=== PATIENT | female | born 1975 | race Caucasian/White ===

== ENCOUNTER 2020-08-05 15:30 | Outpatient (RCR) | payer OTHER, SELFPAY ==
--- NOTE | 2020-07-06 12:35 | PTOPEVAL ---
PHYSICAL THERAPY EVALUATION AND PLAN OF CARE 07-06-2020 Thank you for referring Honey Ziegler to [facility].? She is scheduled to be seen for therapy? 2-3 x/week for 6 weeks. Please review, sign, date and return this plan of care ELENITA. I agree with and certify that the following plan of care is medically necessary. Referring Physician Date Attending Provider: Dr. Levar Phelps *PT Outpatient Evaluation Start: 07/06/20 09:35 Document 07/06/20 09:41 DELVIN (Rec: 07/06/20 11:02 DELVIN [id number]) Therapy Assessment Status Assessment Status Assessment Status Evaluation Outpatient Past Medical History Past Medical History Source of Past Medical History Patient Neurological History Hx Migraine Yes: 2-3 x/month, last 1-2 days Cardiovascular History Hx Cardiac Disorders No Significant History Respiratory History Hx Other Respiratory Disorders Yes: seasonal allergies Gastrointestinal History Hx Gastric Bypass Surgery Yes: 3 years ago-lost 80# and regained 20# recently Hx Gastroesophageal Reflux Disease Yes Genitourinary History Hx Genitourinary Disorders No Significant History Musculoskeletal History Hx Musculoskeletal Disorders No Significant History Endocrine History Hx Hypothyroidism Yes: on meds Reproductive History Hx Section Yes: 13 yr ago Other History Hx Cancer Yes: L breast mastectomy with B reduction 2011-radiation& chemo Hx Radiation Therapy Yes Hx Other Surgeries Yes: MRI guided biopsy on R breast last week Evaluation Information Problem Diagnosis lymphedema- lipedema Onset about 1 yr ago in arms Prior Level of Function Activity Level (Last 3 Months) Occupation teacher- remote teaching Hand Dominance Right Activity of Daily Living Ability Independent Indoor/Home Mobility Independent Community Mobility Independent Stairs Ability Independent Functional Cognition (Planning, Shopping Independent , Taking Medications) Cooking Yes Cleaning Yes Laundry Yes Shopping Yes Driving Yes Comments Additional Prior Level of Function sometimes have more problems Comments with lifting with weakness of L arm; home with 13 yr old son Pain Assessment Timing of Pain Assessment Timing of Pain Assessment Assessment Pain Scale Pain Scale Used Numeric (1 - 10) Self Report Pain Assessmen
--- NOTE | 2020-07-15 15:15 | PCPTNOTE ---
pt called and cancelled under [employer] until her son's covid test come back.
--- NOTE | 2020-07-21 09:57 | PCPTNOTE ---
pt's info faxed to [facility], for insurance authorization for UE reduction kit and LE custom fit panty/LE compression garment; pt had signed consent earlier for her info to be released
--- NOTE | 2020-08-10 13:04 | PCPTNOTE ---
Pt was seen in the ER this weekend due to chest pains. Pt received a CT which the pt was told , she needs to contact her oncologist due to some spots on the report that may be new places of cancer. Pt's appt was cancelled until pt gets the cleared from her oncologist .
--- NOTE | 2020-08-14 15:59 | PCPTNOTE ---
pt called and canceled today's reevaluation, due to awaiting oncology consult for possible new lesion/recent testing;
--- NOTE | 2020-09-25 11:16 | PCPTNOTE ---
PHYSICAL THERAPY DISCHARGE 09-25-2020 Patient:Honey Ziegler Date of :1975 Referring physician: Dr. Levar Phelps Ms. Ziegler has received 9 PT sessions, from July 06 to August 05, for the diagnosis of B UE and LE lipo-lymphedema. Miguel then canceled her appointments due to awaiting further testing/ biopsy and results for a spot on her trunk. Thank you for referring this Miguel to [facility]. Please review, sign, date and return this discharge summary ELENITA. I have been updated about the patient's current status and I agree with discharge from the above service at this time. Referring Physician Date
== END 2020-09-25 14:28 | disposition home or self-care (01) ==
LOC: ANHPT 15:30
PROVIDERS: PCP Internal Medicine
DX: I89.0 Lymphedema, not elsewhere classified (principal); M79.604 Pain in right leg; M79.605 Pain in left leg
CPT/HCPCS: 97110; 97140; 97162

== ENCOUNTER 2020-08-08 04:33 | Emergency (ER) | payer OTHER, SELFPAY ==
[2020-08-08] VITALS (13 sets, daily range): BP systolic 105–155; BP diastolic 71–90; PULSE 70–91; RESP 18; TEMP 36.8; O2SAT 96–100
--- NOTE | ~2020-08-08 | CT_ITS ---
EXAMINATION: CT abdomen pelvis w con DATE: 08/08/2020 07:34 INDICATION: Epigastric abdominal pain. Left upper quadrant abdominal pain. Hiatal hernia. TECHNIQUE: Computed tomography (CT) of the abdomen and pelvis was performed with 100 mL Omnipaque 350 intravenous contrast. Automated exposure control and iterative reconstruction technique were employe d. The dose-length product was 1642.82 mGy-cm. COMPARISON: None. FINDINGS: The visualized portions of the lung bases demonstrate mild atelectasis on the right. There is elevation of right hemidiaphragm. No pleural effusion. The heart size is normal. No pericardial ef fusion. Partially visualized is a left breast implant. The liver and spleen are normal. The gallbladd er is normal in size. Gallbladder wall thickening is noted. There are surgical changes of gastric sle zack procedure. There is a small sliding hiatal hernia. The pancreas, adrenal glands, and left kidney are normal. There is a 1.7 cm mass in right kidney. There is an intrauterine device in expected posit ion. There are no dilated loops of bowel. The appendix is normal. There are no pathologically enlarge d lymph nodes. There is no free intraperitoneal fluid. There is a lytic lesion of right fifth rib. Th ere is a benign bone island in left parasymphyseal pubis. There is a benign bone island in T9 vertebr al body. IMPRESSION: 1. Gallbladder wall thickening, which may be seen with interstitial edema, chronic liver disease, or chronic cholecystitis. 2. Small sliding hiatal hernia. 3. Lytic lesion of right fifth rib, consistent with metastatic disease. 4. 1.7 cm right kidney mass, which may be a hemorrhagic cyst or less likely a solid neoplasm. Abdomen CT or MRI without and with contrast is recommended. Reviewed, dictated and finalized at location A. IMPRESSION: 1. Gallbladder wall thickening, which may be seen with interstitial edema, senior procurement manager juan liver disease, or chronic cholecystitis. 2. Small sliding hiatal hernia. 3. Lytic lesion of right fifth rib, consistent with metastatic disease. 4. 1.7 cm right kidney mass, which may be a hemorrhagic cyst or less likely a s olid neoplasm. Abdomen CT or MRI without and with contrast is recommended.
--- NOTE | 2020-08-08 04:31 | ED.ABDPAIN ---
HPI - Abdominal Pain General Chief Complaint: Abdominal Pain <Dorothy Guerrero MD - Last Filed: 08/08/20 07:15> Stated Complaint: epigastric pain <Dorothy Guerrero MD - Last Filed: 08/08/20 07:15> Time Seen by Provider: 08/08/20 07:10 <Dorothy Guerrero MD - Last Filed: 08/08/20 07:15> Source: patient and EMS <Dorothy Guerrero MD - Last Filed: 08/08/20 07:15> Mode of arrival: EMS <Dorothy Guerrero MD - Last Filed: 08/08/20 07:15> Limitations: no limitations <Dorothy Guerrero MD - Last Filed: 08/08/20 07:15> History of Present Illness HPI narrative: Patient is a 45-year-old female who presents for evaluation of upper abdominal pain. Patient reports that she ate a cheeseburger at [employer] earlier this evening, started to have some sharp, colicky epigastric pain radiating into her chest. Patient denied any palpitations, no diaphoresis. Patient with nausea without vomiting. Patient states this feels different than her typical acid reflux. She denies any current shortness of breath. Patient denies any flank pain or radiation of pain to the shoulders or back. No lightheadedness or dizziness. Patient states pain is worsened over the past 4 hours, thus she is seeking care in the emergency department. She denies any dysuria, hematuria or frequency. No diarrhea or constipation. Patient denies distention, she denies any alcohol use or drug use. <Dorothy Guerrero MD - Last Filed: 08/08/20 07:15> Related Data Home Medications: Home Medications Medication Instructions Recorded Confirmed cetirizine [Zyrtec] 10 mg PO DAILY 08/08/20 fluticasone propionate [Flonase] 1 spray INTRANASAL DAILY PRN 08/08/20 levothyroxine 75 mcg PO DAILY 08/08/20 lorazepam 0.5 mg PO DAILY PRN 08/08/20 omeprazole 40 mg PO DAILY 08/08/20 venlafaxine [Effexor XR] 150 mg PO DAILY 08/08/20 <Dorothy Guerrero MD - Last Filed: 08/08/20 07:15> Allergies/Adverse Reactions: Allergies Allergy/AdvReac Type Severity Reaction Status Date / Time cephalexin Allergy Mild Rash Verified 08/08/20 04:37 Penicillins Allergy Mild Rash Verified 08/08/20 04:37 <Dorothy Guerrero MD - Last Filed: 08/08/20 07:15> Review of Systems Review of Systems: Narrative: CONSTITUTIONAL: Denies fever ENT: Denies rhinorrhea, congestion CARDIOVASCULAR: Reports lower chest pain, denies palpitations, or edema. RESPIRATORY: Denies cough or dyspnea. GASTROINTESTINAL: Reports epigastric abdominal pain and nausea GENITOURINARY: Denies dysuria or hematuria. SKIN: Denies rash or itching. MUSCULOSKELETAL: Denies back pain, joint pain, or myalgia. NEUROLOGIC: Denies headache, numbness, or weakness. <Dorothy Guerrero MD - Last Filed: 08/08/20 07:15> [facility] Past Medical History Medical History: Medical History Breast cancer Depression Sarcoma <Dorothy Guerrero MD - Last Filed: 08/08/20 07:15> Surgical History Surgical History: Surgical History (Updated 08/08/20 @ 04:43 by Dorothy Guerrero MD) H/O section H/O mastectomy <Dorothy Guerrero MD - Last Filed: 08/08/20 07:15> Social History Social History: Social History (Updated 08/08/20 @ 04:44 by Dorothy Guerrero MD) Smoking status: Never smoker Alcohol intake: never Substance use: never Gender identity (if verbalized by the patient): Female <Dorothy Guerrero MD - Last Filed: 08/08/20 07:15> Exam Narrative: Exam Narrative: GENERAL: Awake, alert, conversant HEAD: Normocephalic, atraumatic. EYES: PERRLA and EOMI. ENT: Nares clear, no rhinorrhea or epistaxis. Mucous membranes moist. NECK: Supple. CHEST: No respiratory distress, breathing even and non labored HEART: Regular rate, sinus rhythm ABDOMEN: Obese non distended, epigastric tenderness, left upper quadrant tenderness, no rebound, no guarding EXTREMITIES: Normal range of motion. No edema. SKIN: Warm, dry, no rash.
--- NOTE | 2020-08-08 04:39 | ECG_ITS ---
Measurements Intervals Jenkins Rate: 83 P: 1 KS: 170 QRS: 40 QRSD: 105 T: 29 QT: 369 QTc: 436 Interpretive Statements SINUS RHYTHM BASELINE WANDER- I, II, AVR NORMAL ECG Electronically Signed On 08-08-2020 7:36:47 CDT by Dharmesh Bal D.O.
[2020-08-08] MEDS: SODIUM CHLORIDE 0.9% IV 1,000 ML 999 ML IV CONT (05:08)
[2020-08-08] MEDS: ONDANSETRON INJ 4 MG/2 ML VIAL IV PUSH (05:08)
[2020-08-08] MEDS: FAMOTIDINE 20 MG/2 ML VIAL IV PUSH (05:08)
[2020-08-08] MEDS: MORPHINE SULFATE (*CRX) 4 MG/ML INJ IV PUSH (05:08)
[2020-08-08] MEDS: MAG HYDROX/AL HYDROX/SIMETH 30 ML UDC PO (05:08)
[2020-08-08 05:18] LABS: Basophils Absolute Auto 0.1 K/mm3 (0.0-0.1); Basophils Percent Auto 0.8 % (0.2-1.2); Eosinophils Absolute Auto 0.1 K/mm3 (0-0.3); Eosinophils Percent Auto 1.4 % (0-4.4); Hematocrit 41.7 % (37.0-47.0); Hemoglobin 13.7 g/dL (12.0-15.0); Immature Granulocyte Absolute 0.02 K/mm3 (0.00-0.031); Immature Granulocyte Percent A 0.3 % (0-0.5); Lymphocytes Absolute Auto 1.73 K/mm3 (0.9-3.2); Lymphocytes Percent Auto 22.2 % (18.3-44.2); Mean Corpuscular HGB Conc 32.9 g/dl (32-36); Mean Corpuscular Hemoglobin 30.2 pg (26-34); Mean Corpuscular Volume 91.9 fl (80-100); Monocytes Absolute Auto 0.5 K/mm3 (0.1-0.6); Monocytes Percent Auto 6.5 % (2.6-8.5); Neutrophils Absolute Auto 5.4 K/mm3 (1.3-6.7); Neutrophils Percent Auto 68.8 % (45.5-73.1); Platelet Count Result 242 k/mm3 (150-375); Red Blood Count 4.54 M/mm3 (4.2-5.4); Red Cell Distribution Width 12.7 % (11.5-14.5); White Blood Count 7.8 K/mm3 (4.5-10.0)
[2020-08-08 05:28] LABS: Prothrombin Time 12.4 Seconds (11.1-14.7)
[2020-08-08 05:29] LABS: Partial Thromboplastin Time 26.6 SECONDS (22.3-36.8)
--- NOTE | 2020-08-08 06:13 | PC.NURSE ---
ED center medical and lab director and turfgrass technician attempted to redraw patient for un-received lab, unsuccessful x2. Phlebotomy called. They stated they will come to draw patient.
[2020-08-08 07:01] LABS: Alanine Aminotransferase 133 U/L (4-35); Albumin Level 3.7 g/dL (3.5-5.1); Alkaline Phosphatase 122 U/L (38-126); Anion Gap 4 mmol/L (8-16); Aspartate Amino Transferase 278 U/L (14-36); Bilirubin,Total 0.6 mg/dL (0.2-1.3); Blood Urea Nitrogen 11 mg/dL (7-17); Calcium 9.3 mg/dL (8.4-10.2); Carbon Dioxide 32 mmol/L (22-30); Chloride 103 mmol/L (98-107); Estimated CRCL calculation 109 ml/min; Estimated Glomerular Filt Rate > 60; Glucose 140 mg/dL (65-105); Lipase 69 U/L (23-300); Potassium 3.8 mmol/L (3.4-5.0); Sodium 139 mmol/L (137-145)
[2020-08-08 07:13] LABS: Troponin I < 0.012 ng/mL (0.000-0.034)
--- NOTE | 2020-08-08 07:13 | PC.NURSE ---
received report from Cat RN. patient resting. father in room. waiting for BMP results to proceed with CT. patient denies at this time.
--- NOTE | 2020-08-08 07:46 | PC.NURSE ---
CT resulted. waiting for further orders from provider vs disposition.
== END 2020-08-08 08:50 | disposition home or self-care (01) ==
PROVIDERS: Emergency Medicine; Emergency Provider General Practice; PCP Internal Medicine
DX: R10.13 Epigastric pain (principal); R74.01 Elevation of levels of liver transaminase levels; Z85.3 Personal history of malignant neoplasm of breast; F32.9 Major depressive disorder, single episode, unspecified; Z90.10 Acquired absence of unspecified breast and nipple; K44.9 Diaphragmatic hernia without obstruction or gangrene; N28.89 Other specified disorders of kidney and ureter; M89.9 Disorder of bone, unspecified
CPT/HCPCS: 36415; 74177; 80053; 83690; 84484; 85025; 85610; 85730; 93005; 96361; 96374; 96375; 99284; A9270; J2270; J2405; J7030; Q9967

== ENCOUNTER 2020-09-27 23:18 | Emergency (ER) | payer OTHER, SELFPAY ==
[2020-09-27 23:21] VITALS: BP 149/75; PULSE 66; RESP 20; TEMP 36.1; O2SAT 100
[2020-09-27 23:36] VITALS: BP 125/74; PULSE 66; RESP 18; O2SAT 99
--- NOTE | 2020-09-27 23:36 | ED.ABDPAIN ---
HPI - Abdominal Pain General Chief Complaint: Abdominal Pain Stated Complaint: abdominal pain Time Seen by Provider: 09/27/20 23:31 History of Present Illness HPI narrative: RUQ pain since 1999 today. Severe. No radiation. Started after eating. Associated with nausea and vomiting x1. She was seen here with similar pain on 08/08. At that time she had a CT done showing gall bladder wall thickening, and transaminitis. It does not sound like she followed up after that. Related Data Home Medications Medication Instructions Recorded Confirmed cetirizine [Zyrtec] 10 mg PO DAILY 08/08/20 fluticasone propionate [Flonase] 1 spray INTRANASAL DAILY PRN 08/08/20 levothyroxine 75 mcg PO DAILY 08/08/20 lorazepam 0.5 mg PO DAILY PRN 08/08/20 omeprazole 40 mg PO DAILY 08/08/20 venlafaxine [Effexor XR] 150 mg PO DAILY 08/08/20 Allergies Allergy/AdvReac Type Severity Reaction Status Date / Time cephalexin Allergy Mild Rash Verified 09/27/20 23:22 Penicillins Allergy Mild Rash Verified 09/27/20 23:22 Review of Systems Review of Systems: All systems reviewed & are unremarkable except as noted in HPI and below Constitutional: Constitutional: Denies fever(s) Cardiovascular: Cardiovascular: Denies chest pain Respiratory: Respiratory: Denies dyspnea Gastrointestinal: Gastrointestinal: Reports abdominal pain, Reports nausea and Reports vomiting Genitourinary: Genitourinary: Denies hematuria and Denies dysuria Neurologic: Denies dizziness and Denies weakness Psychiatric: Psychiatric: Reports anxiety and Reports depression [facility] Past Medical History Medical History Breast cancer Depression Sarcoma Surgical History Surgical History H/O section H/O mastectomy Social History Social History Smoking status: Never smoker Alcohol intake: never Substance use: never Gender identity (if verbalized by the patient): Female Exam Const: General: no acute distress and alert Nutritional Appearance: obese Orientation/consciousness: patient oriented x3 HENMT: Head: normal to inspection Neck: Neck: normal visual inspection Resp: Effort & Inspection: normal respiratory effort Auscultation: clear to auscultation bilaterally Cardio: Rate: regular rate Rhythm: regular rhythm GI: GI Palp: Yes Soft to palpation, Yes Tenderness to palpation present (GI) (RUQ), Yes Guarding due to palpation present (GI) and No Rebound tenderness present Skin: General skin exam: normal color Neuro: General: patient oriented x3, moves all extremities, no focal motor deficits and CN's II-XI intact bilaterally Speech: normal speech Gait exam (Neuro): Normal gait present Extrem: General: normal to inspection Course Vital Signs Vital signs: Vital Signs Temperature 36.1 C L 09/27/20 23:21 Pulse Rate 66 09/27/20 23:21 Respiratory Rate 20 09/27/20 23:21 Blood Pressure 149/75 H 09/27/20 23:21 Pulse Oximetry 100 09/27/20 23:21 Temperature 36.1 C L 09/27/20 23:21 Pulse Rate 66 09/27/20 23:36 Respiratory Rate 18 09/27/20 23:36 Blood Pressure 104/86 09/28/20 01:17 Pulse Oximetry 95 09/28/20 01:48 MDM - Abdominal Pain Differential Diagnosis Differential diagnosis: Likely calculus of kidney, constipation, diverticulitis, pancreatitis and other Medical Records Attestation: I reviewed the patient's medical records. Lab Data Attestation: I reviewed the patient's lab results. Result diagrams: 09/27/20 23:36 09/27/20 23:36 Labs: Lab Results 09/27/20 09/27/20 Range/Units 23:36 23:36 WBC 8.4 (4.5-10.0) K/mm3 RBC 4.39 (4.2-5.4) M/mm3 Hgb 13.5 (12.0-15.0) g/dL Hct 39.6 (37.0-47.0) % MCV 90.2 (80-100) fl MCH 30.8 (26-34) pg MCHC 34.1 (32-36) g/dl RDW 13.5 (11.5-14
[2020-09-27 23:37] VITALS: O2SAT 98
[2020-09-27 23:38] VITALS: BP 125/74; O2SAT 97
[2020-09-27] MEDS: SODIUM CHLORIDE 0.9% IV 1,000 ML 999 ML IV CONT (23:41)
[2020-09-27] MEDS: ONDANSETRON INJ 4 MG/2 ML VIAL IV PUSH (23:41)
[2020-09-27] MEDS: MORPHINE SULFATE (*CRX) 4 MG/ML INJ IV PUSH (23:42)
[2020-09-27] MEDS: PANTOPRAZOLE SODIUM IV 40 MG VIAL IV PUSH (23:42)
[2020-09-27 23:44] LABS: Basophils Absolute Auto 0.1 K/mm3 (0.0-0.1); Basophils Percent Auto 0.6 % (0.2-1.2); Eosinophils Absolute Auto 0.1 K/mm3 (0-0.3); Eosinophils Percent Auto 0.8 % (0-4.4); Hematocrit 39.6 % (37.0-47.0); Hemoglobin 13.5 g/dL (12.0-15.0); Immature Granulocyte Absolute 0.02 K/mm3 (0.00-0.031); Immature Granulocyte Percent A 0.2 % (0-0.5); Lymphocytes Absolute Auto 1.24 K/mm3 (0.9-3.2); Lymphocytes Percent Auto 14.8 % (18.3-44.2); Mean Corpuscular HGB Conc 34.1 g/dl (32-36); Mean Corpuscular Hemoglobin 30.8 pg (26-34); Mean Corpuscular Volume 90.2 fl (80-100); Mean Platelet Volume 8.8 fl (7.4-10.4); Monocytes Absolute Auto 0.7 K/mm3 (0.1-0.6); Neutrophils Absolute Auto 6.3 K/mm3 (1.3-6.7); Neutrophils Percent Auto 75.6 % (45.5-73.1); Platelet Count Result 255 k/mm3 (150-375); Red Blood Count 4.39 M/mm3 (4.2-5.4); Red Cell Distribution Width 13.5 % (11.5-14.5); White Blood Count 8.4 K/mm3 (4.5-10.0)
[2020-09-27 23:45] VITALS: O2SAT 99
[2020-09-27 23:46] VITALS: BP 118/70; O2SAT 98
[2020-09-27 23:59] LABS: Alanine Aminotransferase 92 U/L (4-35); Albumin Level 3.7 g/dL (3.5-5.1); Alkaline Phosphatase 144 U/L (38-126); Anion Gap 6 mmol/L (8-16); Aspartate Amino Transferase 212 U/L (14-36); Bilirubin,Total 0.6 mg/dL (0.2-1.3); Blood Urea Nitrogen 7 mg/dL (7-17); Carbon Dioxide 29 mmol/L (22-30); Chloride 102 mmol/L (98-107); Estimated CRCL calculation 109 ml/min; Estimated Glomerular Filt Rate > 60; Glucose 185 mg/dL (65-105); Lipase 70 U/L (23-300); Potassium 3.5 mmol/L (3.4-5.0); Sodium 137 mmol/L (137-145)
[2020-09-28] VITALS (9 sets, daily range): BP systolic 104; BP diastolic 86; O2SAT 84–99
[2020-09-28] MEDS: CIPROFLOXACIN 500 MG TAB PO (02:00)
== END 2020-09-28 02:01 | disposition home or self-care (01) ==
PROVIDERS: Emergency Provider Emergency Medicine; PCP Internal Medicine
DX: R10.11 Right upper quadrant pain (principal); Z85.3 Personal history of malignant neoplasm of breast; F32.9 Major depressive disorder, single episode, unspecified; Z90.10 Acquired absence of unspecified breast and nipple; K81.9 Cholecystitis, unspecified; Z86.19 Personal history of other infectious and parasitic diseases
CPT/HCPCS: 36415; 80053; 83690; 85025; 96361; 96374; 96375; 99284; A9270; C9113; J2270; J2405; J7030

== ENCOUNTER 2020-10-14 07:35 | Outpatient (CLI) | payer OTHER, SELFPAY ==
--- NOTE | ~2020-10-14 | NM_ITS ---
EXAMINATION: NM hepatobiliary wo pharm DATE: 10/14/2020 11:47 INDICATION: Right upper quadrant abdominal pain. Cholecystitis. COMPARISON: CT abdomen and pelvis 08/08/2020 TECHNIQUE: 5 mCi Tc-99m mebrofenin (Choletec) was administered intravenously. Scintigraphic images o f the abdomen were obtained for one hour. Delayed images were obtained at 4 hours. FINDINGS: There is normal clearance of radiotracer from the blood pool. There is homogeneous tracer u ptake by the liver. Activity progresses to the bowel at 15 minutes. There is activity in the gallbla dder at 4 hours. IMPRESSION: 1. Patent cystic duct. Reviewed, dictated and finalized at location A. OR TRAINER IMPRESSION: 1. Patent cystic duct.
== END 2020-10-14 07:36 | disposition home or self-care (01) ==
PROVIDERS: PCP Internal Medicine; Visit Provider Internal Medicine
DX: K81.9 Cholecystitis, unspecified (principal)
CPT/HCPCS: 78226; A9537

== ENCOUNTER 2020-11-16 15:30 | Outpatient (RCR) | payer OTHER, SELFPAY ==
--- NOTE | 2020-10-13 09:13 | PTOPEVAL ---
PHYSICAL THERAPY EVALUATION AND PLAN OF CARE 10-13-2020 Thank you for referring Honey Ziegler to [facility] [place], for the diagnosis of R and L UE and LE, lipo-lymphedema.? Treatment will be initiated on her UE's, then progress to LE's. She is scheduled to be seen for therapy? 2 x/week for 6 weeks. Please review, sign, date and return this plan of care ELENITA. I agree with and certify that the following plan of care is medically necessary. Referring Physician Date Attending Provider: Dr. Levar Phelps *PT Outpatient Evaluation Start: 10/13/20 08:11 Document 10/13/20 08:05 DELVIN (Rec: 10/13/20 09:13 DELVIN [id number]) Outpatient Past Medical History Past Medical History Source of Past Medical History Patient,Recalled from Previous Visit, Confirmed with Patient /Family Neurological History Hx Migraine Yes: 2-3 x/month, last 1-2 days Cardiovascular History Hx Cardiac Disorders No Significant History Respiratory History Hx Other Respiratory Disorders Yes: seasonal allergies Gastrointestinal History Hx Gastric Bypass Surgery Yes: 3 years ago Hx Gastroesophageal Reflux Disease Yes Genitourinary History Hx Genitourinary Disorders No Significant History Musculoskeletal History Hx Musculoskeletal Disorders No Significant History Endocrine History Hx Hypothyroidism Yes: on meds Reproductive History Hx Section Yes: 13 yr ago Other History Hx Cancer Yes: L breast mastectomy with B reduction 2011-radiation& chemo Hx Radiation Therapy Yes Hx Other Surgeries Yes: recent biopsy of R rib negative Evaluation Information Problem Diagnosis B UE and LE lipo-lymphedema Onset February 2020 Prior Level of Function 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
--- NOTE | 2020-10-22 07:48 | PCPTNOTE ---
Patient called & cancelled scheduled appointment this date due to a migraine
--- NOTE | 2020-10-22 07:51 | PCPTNOTE ---
Called pt left message to take off finger wraps after 2 days with reduction kit . pt had called and cancelled due to migrane.
--- NOTE | 2020-11-02 16:14 | PCPTNOTE ---
pt did not show for today's appt, called and left voice message with reminder for next appt on Mon;
--- NOTE | 2020-11-09 08:26 | PCPTNOTE ---
Patient called & cancelled scheduled appointment at 7:55 for a 8am scheduled appointment[. pt stated she was going to the ER. ]
--- NOTE | 2020-11-12 10:12 | PCPTNOTE ---
Late note from yesterday 11/11/20, pt no show , no call for today's appointment. Called pt left message , reminder her of next Monday's appt. and to call if she will not be able to make it.
--- NOTE | 2020-11-18 12:37 | PCPTNOTE ---
pt called and cancelled due to work meeting.
--- NOTE | 2020-11-23 15:43 | PCPTNOTE ---
pt did not show for today's reevaluation.
--- NOTE | 2020-12-14 12:49 | PCPTNOTE ---
PHYSICAL THERAPY DISCHARGE 12-14-20 Attending Provider: Dr. Levar Phelps Patient:Honey Ziegler Date of :1975 Ms. Ziegler has not returned for any further treatments since 11/16/2020, therefore she will be discharged at this time. Miguel has received 6 PT sessions, from October 13 to November 16, then she stopped attending therapy. The goals were not addressed. Thank you for referring this patient to [facility]. Please review, sign, date and return this discharge summary ELENITA. I have been updated about the patient's current status and I agree with discharge from the above service at this time. Referring Physician Date
== END 2020-12-15 10:14 | disposition home or self-care (01) ==
LOC: ANHPT 15:30
PROVIDERS: PCP Internal Medicine
DX: M79.604 Pain in right leg (principal); M79.605 Pain in left leg; I89.0 Lymphedema, not elsewhere classified
CPT/HCPCS: 29581; 97140; 97161

== ENCOUNTER 2021-11-02 16:18 | Outpatient (CLI) | payer OTHER, SELFPAY ==
[2021-11-02 17:38] LABS: HIV 1/2 Ab P24 Ag Result Negative (Negative)
[2021-11-02 17:46] LABS: Hepatitis B Surface Antigen Negative (Negative)
[2021-11-02 17:52] LABS: HAV RESULT Negative (Negative); Hepatitis B Core IgM Result Negative (Negative)
[2021-11-02 18:03] LABS: Hepatitis C Virus Antibody Negative (Negative)
[2021-11-03 14:25] LABS: Rapid Plasma Reagin Non-Reactive (NonReactive)
== END 2021-11-02 16:19 | disposition home or self-care (01) ==
LOC: ANHLAB 16:20
PROVIDERS: PCP Internal Medicine; Visit Provider Obstetrics & Gynecology
DX: A64 Unspecified sexually transmitted disease (principal)
CPT/HCPCS: 36415; 80074; 86592; 86703; 87491; 87591; 87661; G0432

== ENCOUNTER 2025-01-28 13:23 | Outpatient (CLI) | payer BC, SELFPAY ==
--- NOTE | ~2025-01-28 | XR_ITS ---
Right Hand Technique: PA, oblique, and lateral views were obtained. Clinical History: Pain Findings: No acute fracture or dislocation is seen. Osseous alignment is anatomic. Joint spaces are p reserved. Soft tissues are unremarkable. Impression: Unremarkable right hand. Reviewed, dictated and finalized at location M. Impression: Unremarkable right hand.
--- NOTE | ~2025-01-28 | XR_ITS ---
Lumbosacral Spine: AP and lateral views Clinical History: Pain Findings: The normal lordotic curve is maintained. The vertebral bodies and posterior elements are i ntact. There is mild degenerative disc narrowing at L4-L5. The intervertebral disc spaces are otherwi se preserved. There is mild facet arthropathy of the lower lumbar spine. The sacroiliac joints are no rmally outlined. Impression: Mild degenerative spondylosis, as above. Reviewed, dictated and finalized at location M. Impression: Mild degenerative spondylosis, as above.
--- NOTE | ~2025-01-28 | XR_ITS ---
HISTORY: chronic pain of multiple joints COMPARISON: None TECHNIQUE: 3 views of the right knee were performed FINDINGS: No acute or subacute fracture, erosion, lytic or sclerotic lesion. Medial and lateral tibiofemoral joint space narrowing is identified. Small suprapatellar joint effusion is identified. The infrapatellar joint space is clear. IMPRESSION: Small suprapatellar joint effusion with degenerative disease. No acute fracture. Reviewed, dictated and finalized at location A. IMPRESSION: Small suprapatellar joint effusion with degenerative disease. No a cute fracture.
--- NOTE | ~2025-01-28 | XR_ITS ---
Cervical Spine: AP, lateral, open-mouth views Clinical History: Pain Findings: There is straightening of the normal cervical lordosis. The vertebral bodies and posterior elements appear intact. The intervertebral disc spaces are well maintained. Pre-vertebral soft tissu es are unremarkable. Impression: Straightening of the normal cervical lordosis, otherwise unremarkable exam. Reviewed, dictated and finalized at location . Impression: Straightening of the normal cervical lordosis, otherwise unremarkable exam.
--- NOTE | ~2025-01-28 | XR_ITS ---
Left Hand Technique: PA, oblique, and lateral views were obtained. Clinical History: Pain Findings: No acute fracture or dislocation is seen. Osseous alignment is anatomic. Joint spaces are p reserved. Soft tissues are unremarkable. Impression: Unremarkable left hand. Reviewed, dictated and finalized at location M. Impression: Unremarkable left hand.
--- NOTE | ~2025-01-28 | XR_ITS ---
HISTORY: chronic pain of multiple joints COMPARISON: None TECHNIQUE: 3 views of the left knee were performed FINDINGS: No acute or subacute fracture, erosion, lytic or sclerotic lesion. Medial and lateral tibiofemoral joint space narrowing is identified. No suprapatellar joint effusion is identified. The infrapatellar joint space is clear. IMPRESSION: Degenerative disease without acute fracture. Reviewed, dictated and finalized at location A.
--- NOTE | ~2025-01-28 | XR_ITS ---
AP and oblique views of the SI joints CLINICAL HISTORY: Joint pain FINDINGS: SI joints and hip joints are intact. No degenerative or erosive arthropathy evident. Soft t issues are unremarkable. No acute fracture. IUD in place. IMPRESSION: No significant abnormality. Reviewed, dictated and finalized at [facility]. IMPRESSION: No significant abnormality.
== END 2025-01-28 13:24 | disposition home or self-care (01) ==
PROVIDERS: PCP Physician Assistant Medical; Visit Provider Physician Assistant Medical
DX: R76.8 Other specified abnormal immunological findings in serum (principal); M47.896 Other spondylosis, lumbar region; M25.462 Effusion, left knee; M17.12 Unilateral primary osteoarthritis, left knee
CPT/HCPCS: 72040; 72100; 72202; 73130; 73562; 73630